=== PATIENT | male | born 1955 | race Asian ===

== ENCOUNTER → 2017-06-05 | Outpatient (CLI) | payer OTHER ==
[~2017-06-05] VITALS: Ht 160 cm; Wt 65.0 kg
[~2017-06-05] MED LIST: ATOR10TA84 PO; DEXT1DRO8 OP; DIPR15O TP; FLUT15.88 NASAL; OMEG100033 PO
[2017-06-05 09:01] VITALS: BP 145/95
== END | disposition home or self-care (01) ==
LOC: HBOWC 08:23
PROVIDERS: ATTEND Emergency Medicine
DX: M27.2 Inflammatory conditions of jaws (principal)

== ENCOUNTER → 2017-07-10 | Outpatient (CLI) | payer OTHER ==
[2017-07-10 09:24] VITALS: BP 139/63
== END | disposition home or self-care (01) ==
LOC: HBOWC 08:28
PROVIDERS: ATTEND Emergency Medicine
DX: L59.8 Other specified disorders of the skin and subcutaneous tissue related to radiation (principal); M27.2 Inflammatory conditions of jaws; Y84.2 Radiological procedure and radiotherapy as the cause of abnormal reaction of the patient, or of later complication, without mention of misadventure at the time of the procedure

== ENCOUNTER → 2017-07-24 | Outpatient (CLI) | payer OTHER ==
[2017-07-24 09:21] VITALS: BP 119/73
[2017-07-24 09:22] VITALS: BP_SYST 119; BP_SYST 148; BP_DIAS 73; BP_DIAS 74
== END | disposition home or self-care (01) ==
LOC: HBOWC 09:03
PROVIDERS: ATTEND Emergency Medicine
DX: M27.2 Inflammatory conditions of jaws (principal)